=== PATIENT | female | born 1970 | race Caucasian/White ===

== ENCOUNTER 2017-10-11 09:08 | Emergency (ER) | payer BC, OTHER ==
[~2017-10-11] VITALS: Ht 167.6 cm; Wt 87.8 kg
[~2017-10-11 09:08] MED LIST: BUPR200T2 PO; CLON0.5T3 PO; ESCI10TA17 PO; FLUT0.15 NAE; MECL1TAB40 PO; MULT-612 PO; ONDA4TAB4 PO; PHEN37.585 PO; ZOLP6.252 PO
[2017-10-11 09:13] VITALS: TEMP 36.7; Ht 167.6 cm; Wt 87.8 kg
[2017-10-11] MEDS ORDERED: ZFR4 PO (09:41)
[2017-10-11] MEDS ORDERED: KETOROLAC TROMETHAMINE 60 MG/2 ML VIAL IM STA (09:58)
[2017-10-11] MEDS ORDERED: DIAZEPAM 5MG TAB PO STA (09:58)
--- NOTE | 2017-10-11 11:22 | DIAGNOSTIC IMAGING REPORT ---
L-SPINE MIN 4 VIEWS ROUTINE, THORACIC SPINE 3 VIEWS ROUTINE HISTORY: 47 years-old Female midline low back pain, poss T12 compression fracture acute mid and low back pain with recent fall COMPARISON: CT 10/21/2015 TECHNIQUE: 5 views of the lumbar spine and 3 views of the thoracic spine FINDINGS: THORACIC: There are 12 rib-bearing thoracic-type vertebral segments present. There is no acute fracture, subluxation or significant degenerative changes identified. There is minimal endplate spurring. Fusion hardware of the cervical spine. Atherosclerosis of the aorta. LUMBAR: 5 nonrib-bearing lumbar type vertebral segments. No spondylolysis or spondylolisthesis. Mild facet arthrosis at L5-S1. No compression deformity, acute fracture or subluxation. Surgical clips project over the mid pelvis. IMPRESSION: No acute fracture or subluxation. The above report was generated using voice recognition software. It may contain grammatical, syntax or spelling errors. Electronically signed by: Tiburcio Beasley M.D. 10/11/2017 11:20 AM Dictated Date/Time: 10/11/2017 11:17 AM
--- NOTE | 2017-10-11 11:45 | EMERGENCY ROOM VISIT NOTE ---
ED Visit Note First contact with patient: 09:21 CHIEF COMPLAINT: Low back pain HISTORY OF PRESENT ILLNESS: This is a 47-year-old female who presents to the emergency department complaining of pain in the low back which began approximately a week ago after she fell down some steps. She states that she slipped and landed right on her lower back, and has had bad lower back pain ever since. She states that the pain is constant, radiates into her left buttock and occasionally shoots down the left leg, worse with ending twisting and sitting up from lying down, better with rest and medications, currently rates as 8/10. Patient states that she saw her primary care doctor and also saw an orthopedic doctor, had x-rays done and was placed on ibuprofen, Flexeril , Ultram, which she states has been helping her pain. However, she is concerned that pain medication is "masking" her back pain and she wants something that will fix the pain immediately. The patient denies any loss of control of their bowel or bladder functions. There has been no leg numbness or weakness, and no change in sensation. No saddle paresthesia. No nausea or vomiting or abdominal pain. No chest pain or shortness of breath. The patient has not had prior back injuries. No dysuria or increased urinary frequency. No abrasions, or rash. No headaches, neck pain or stiffness, vision changes, dizziness or syncope. REVIEW OF SYSTEMS: A complete 10 point review of systems was reviewed with the patient with pertinent positives and negatives as per history of present illness. All else were negative. ALLERGIES: Reviewed in chart. MEDICATIONS: Reviewed in chart. PMH: Reviewed in chart. SOCIAL HISTORY: Lives at home. Denies tobacco, alcohol, recreational drug use. PHYSICAL EXAM: VITALS: Vitals are noted on the nurse's note and reviewed by myself. Vital signs stable. GENERAL: Pleasant and cooperative, in no acute distress, non-diaphoretic, well- developed well-nourished. SKIN: The skin is without rashes, erythema, edema, or bruising. Capillary refill less than 2 seconds. NECK: Supple without nuchal rigidity. No cervical spine tenderness. No paraspinous muscle tenderness. HEART: Regular rate and rhythm without murmurs gallops or rubs. LUNGS: Clear to auscultation bilaterally without wheezes, rales or rhonchi. ABDOMEN: Positive bowel sounds x 4. Normal tympanic percussion. Soft, nontender, without masses or organomegaly. Green sign negative. MUSCULOSKELETAL: No muscle atrophy, erythema, or edema noted of the back. There is moderate tenderness over the lumbar spinous processes. There is also tenderness over the paraspinous muscles on the left. There is no tenderness over the thoracic spine or paraspinous muscles. There are mild muscle spasms present. The patient is slow to move around with maximum tenderness with bending at the waist. Negative straight leg raise test bilaterally. NEURO: Patient was alert and oriented to person place and time. Normal sensation to light and sharp touch. Deep tendon reflexes 2+ in the lower extremities. Dorsalis pedis pulse 2+ bilaterally. Strength 5/5 and equal in the bilateral lower extremities. IMAGING: L-SPINE MIN 4 VIEWS ROUTINE, THORACIC SPINE 3 VIEWS ROUTINE HISTORY: 47 years-old Female midline low back pain, poss T12 compression fracture acute mid and low back pain with recent fall COMPARISON: CT 10/21/2015 TECHNIQUE: 5 views of the lumbar spine and 3 views of the thoracic spine FINDINGS: THORACIC: There are 12 rib-bearing thoracic-type vertebral segments present. There is no acute fracture, subluxation or significant degenerative changes identified. There is minimal endplate spurring. Fusion hardware of the cervical spine. Atherosclerosis of the aorta. LUMBAR: 5 nonrib-bearing lumbar type vertebral segments. No spondylolysis or spondylolisthesis. Mild facet arthrosis at L5-S1. No compression deformity, acute fracture or subluxation. Surgical clips project over the mid pelvis. IMPRESSION: No acute fracture or subluxation. EMERGENCY DEPARTMENT COURSE: I examined the patient. Differential diagnosis includes lumbar sprain/strain, contusion, radiculopathy, sciatica, vertebral fracture, subluxation, among others. Patient was treated with IM Toradol and PO Valium. Patient did show me a message from her PCP requesting that she have thoracic spine imaging done to further evaluate for possible T12 vertebral compression fracture. Given her worsening low back pain, will perform thoracic and lumbar spine x-rays at this time. These were reviewed and showed no acute fracture or subluxation. Patient reports improved pain after receiving Toradol and Valium. She was also given a dose of tramadol, which she states has been helping her pain. She was encouraged to follow closely with her primary care provider and to seek referral for physical therapy to help continue improving her back pain. She was also given strict return precautions should her symptoms worsen, she verbalized understanding. Patient was discharged home in stable condition and ambulatory. Problem List Medical Problems: (1) Anxiety Status: Chronic (2) Depression Status: Chronic Current/Historical Medications Scheduled Bupropion Hcl (Wellbutrin Sr), 200 MG PO BID Escitalopram (Lexapro), 10 MG PO HS Multiple Vitamins W/ Minerals (Centrum Ultra Womens), 1 TAB PO LUNCHTIME Scheduled PRN Clonazepam (Klonopin), 0.5 MG PO TID PRN for Anxiety Meclizine Hcl (Meclizine Hcl), 12.5-25 MG PO TID PRN for Dizziness or Vertigo Ondansetron (Ondansetron HCl), 4 MG PO Q6 PRN for Nausea Allergies Coded Allergies: Hydrocodone (Verified Allergy, Mild, HIVES, 10/11/17) PATIENT TOLERATES PERCOCET Nalbuphine (Verified Allergy, Mild, HIVES, 10/11/17) Hydromorphone (Verified Adverse Reaction, Intermediate, vomited for 2 days , 10/11/17) Morphine (Verified Adverse Reaction, Mild, n/v, 10/11/17) Vital Signs Date Time Temp Pulse Resp B/P (MAP) Pulse Ox O2 Delivery O2 Flow Rate FiO2 10/11/17 12:41 77 16 126/83 98 10/11/17 11:43 70 14 124/74 98 Room Air 10/11/17 09:13 36.7 95 18 148/85 96 Room Air Medications Administered Medications (Trade) Dose Ordered Sig/Ness Route Start Time Stop Time Status Last Admin Dose Admin Ketorolac Tromethamine (Toradol Inj) 60 mg NOW STAT IM 10/11/17 09:58 10/11/17 10:00 DC 10/11/17 10:17 60 MG Diazepam (Valium Tab) 10 mg NOW STAT PO 10/11/17 09:58 10/11/17 10:00 DC 10/11/17 10:17 10 MG Tramadol HCl (Ultram Tab) 100 mg NOW STAT PO 10/11/17 11:53 10/11/17 11:54 DC 10/11/17 12:04 100 MG Departure Information Impression Primary Impression: Injury of low back Dispostion Home / Self-Care Condition GOOD Referrals Mandi Wright D.O. (PCP) Patient Instructions ED Back Care Tips, ED Exercises Lumbar Muscles, ED Low Back Pain Injury, My [facility] Additional Instructions Take it easy for the next few days, no strenuous activity, heavy lifting, or bending/twisting motions, to allow your back to rest. Alternate heat and ice for comfort. After heat, you may do gentle stretching and massage to the low back. Continue your prescribed medications from your PCP to manage your back pain and spasms. Follow up with your PCP in the next few days for further management. You may benefit from physical therapy. Please return to the ER if any problems with bowel or bladder function, numbness in your groin, high fevers, severe abdominal pain or worsening back pain, or if loss of feeling/movement of legs. Work Instructions Return To Work: 2 days Problem Qualifiers Primary Impression: Injury of low back Encounter type: subsequent encounter Qualified Codes: S39.92XD - Unspecified injury of lower back, subsequent encounter
[2017-10-11] MEDS ORDERED: TRAMADOL HCL 50 MG TAB PO STA (11:53)
[2017-10-11 12:41] VITALS: BP 126/83; PULSE 77; O2SAT 98
== END 2017-10-11 12:42 | disposition home or self-care (01) ==
LOC: C.EDB 09:08
DX: S39.92XA Unspecified injury of lower back, initial encounter (principal); W10.9XXA Fall (on) (from) unspecified stairs and steps, initial encounter; F32.9 Major depressive disorder, single episode, unspecified; F41.9 Anxiety disorder, unspecified; Z88.5 Allergy status to narcotic agent

== ENCOUNTER 2021-07-05 12:31 | Inpatient (IN) ==
[2021-07-05] MEDS ORDERED: ONDANSETRON INJ 2 MG/ML 2 ML VIAL IV STA (13:33)
[2021-07-05] MEDS ORDERED: KETOROLAC TROMETHAMINE 15 MG/ML VIAL IV ONE ×2 (13:33→14:38)
[2021-07-05] MEDS ORDERED: SODIUM CHLORIDE 0.9% 1000ML 1,000 ML IV SCH (13:34)
[2021-07-05 13:41] LABS: Basophils # (auto) 0.03 K/uL (0-0.2); Basophils % (auto) 0.3 %; Eosinophils # (auto) 0.05 K/uL (0-0.5); Eosinophils % (auto) 0.5 %; Hematocrit (blood only) 37.3 % (37-47); Hemoglobin 12.6 g/dL (12.0-16.0); Immature Granulocytes # (auto) 0.03 K/uL (0.00-0.02); Immature Granulocytes % (auto) 0.3 %; Lymphocytes # (auto) 1.48 K/uL (1.2-3.4); Lymphocytes % (auto) 13.6 %; Mean Corpuscular Hemoglobin 30.9 pg (25-34); Mean Corpuscular Hgb Conc 33.8 g/dL (32-36); Mean Corpuscular Volume 91.4 fL (80-100); Mean Platelet Volume 10.4 fL (7.4-10.4); Monocytes # (auto) 0.71 K/uL (0.11-0.59); Monocytes % (auto) 6.5 %; Neutrophils # (auto) 8.58 K/uL (1.4-6.5); Neutrophils % (auto) 78.8 %; Platelet Count 311 K/uL (130-400); RDW Coefficient of Variation 12.6 % (11.5-14.5); RDW Standard Deviation 42.6 fL (36.4-46.3); Red Blood Count 4.08 M/uL (4.2-5.4); White Blood Count 10.88 K/uL (4.8-10.8)
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
[2021-07-05 13:59] LABS: Alanine Aminotransferase 34 (12-78); Albumin Level 3.8 gm/dl (3.4-5.0); Aspartate Aminotransferase 11 U/L (15-37); BUN Creatinine Ratio 30.6 (10-20); Blood Urea Nitrogen 19 mg/dl (7-18); Calcium 9.4 mg/dl (8.5-10.1); Carbon Dioxide 25 mmol/L (21-32); Chloride 109 mmol/L (98-107); Est GFR (African American) 119.3 ml/min; Est GFR (Non-African American) 102.9 ml/min; Glucose 143 mg/dl (70-99); Lipase 82 U/L (73-393); Potassium 3.9 mmol/L (3.5-5.1); Sodium 140 mmol/L (136-145)
[2021-07-05 14:01] LABS: Alkaline Phosphatase 79 U/L (45-117); Bilirubin,Total 0.3 mg/dl (0.2-1); Globulin 3.8 gm/dl (2.5-4.0); Total Protein 7.6 gm/dl (6.4-8.2)
[2021-07-05 14:10] LABS: Partial Thromboplastin Time 26.2 Seconds (21.0-31.0); Prothrombin Time 10.5 Seconds (9.0-12.0)
[2021-07-05 14:24] LABS: Pregnancy Test, Serum Negative (Negative)
[2021-07-05] MEDS ORDERED: OPTIRAY 320 100ml IV ONE (14:26)
--- NOTE | 2021-07-05 14:54 | CT Scan Report ---
ABDOMEN AND PELVIS CT WITH IV CONTRAST CT DOSE: 523.91 mGy.cm HISTORY: severe L flank pain, hematuria, vag bleeding TECHNIQUE: Multiaxial CT images of the abdomen and pelvis were performed following the use of intrave nous contrast. A dose lowering technique was utilized adhering to the principles of ALARA. COMPARISON STUDY: Abdomen and pelvis CT 10/21/2015. FINDINGS: The lung bases are clear. No pneumoperitoneum. No pneumatosis. L5-S1 posterior decompressio n and fusion with pedicle screws and rods. No fractures within the visualized osseous structures. Sta ble 1 cm heterogeneous enhancing lesion within the right hepatic lobe on image 113. This favors a hem angioma given the long-term stability. Small nodular thickening within the gallbladder fundus remains unchanged. This is consistent with adenomyomatosis. No gallstones. The pancreas, spleen, and adrenal glands are unremarkable. Mild focal scarring within the right kidney. A 6 mm hypodense lesion within the lower pole of the right kidney and a 7 mm hypodense lesion within the lower pole of the left kid jose manuel. These are technically too small to characterize but remain stable and therefore favors cysts. No right-sided hydronephrosis. There is a 6.8 cm blood clot within the bladder lumen. No bladder wall t hickening. The uterus is surgically absent. A few colonic diverticula. No evidence for acute divertic ulitis. No bowel wall thickening or obstruction. Normal appendix. No retroperitoneal lymphadenopathy. Mildly ectatic abdominal aorta measuring up to 2.6 cm in diameter. The renal arteries appear patent. The IVC is also patent. No pelvic free fluid. There is a small amount of the medial left perinephric hemorrhage. There is also hemorrhage within a distended calyx within the interpolar region of the le ft kidney posteriorly best seen on image 170. There is small amount of hemorrhage within the left margareth al pelvis which is nondilated. No ureteral stones. No hydronephrosis. No CT evidence for a renal aneu rysm or arteriovenous malformation. However, this could be obscured by the perinephric hemorrhage. Th ere is also a small amount of perinephric hemorrhage surrounding the ureteropelvic junction and proxi mal left ureter. No definite renal lesions. However, this could also be obscured by the hemorrhage. IMPRESSION: 1. There is a small amount of the medial left perinephric hemorrhage. There is also hemorrhage within a distended calyx within the interpolar region of the left kidney posteriorly and a small amount of hemorrhage within the left renal pelvis which is nondilated. No CT evidence for a renal mass, renal a neurysm or arteriovenous malformation. However, this could be obscured by the perinephric hemorrhage. There is also a small amount of perinephric hemorrhage surrounding the ureteropelvic junction and pr oximal left ureter. This could represent spontaneous hemorrhage if the patient is anticoagulated. [facility] and close clinical follow-up recommended to exclude the possibility of an underlying left renal mass or vascular abnormality. 2. A 6.8 cm blood clot within the bladder lumen. No bladder wall thickening. 3. Additional findings as described above. ACT 112: Negative or not required by law. Electronically signed by: Magno Gupta M.D. 07/05/2021 2:52 PM
[2021-07-05] MEDS ORDERED: ACETAMINOPHEN 325 MG TAB PO PRN (16:03)
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
[2021-07-05] MEDS: ACETAMINOPHEN 500 MG TAB PO SCH ×2 (17:17→23:32)
[2021-07-05] MEDS ORDERED: GLUCOSE 10 TABS/TUBE PO PRN (19:36)
[2021-07-05] MEDS ORDERED: GLUCAGON FOR INJ 1 MG VIAL SQ PRN (19:36)
[2021-07-05] MEDS ORDERED: CARBOHYDRATES FOR HYPOGLYCEMIA PO PRN (19:36)
[2021-07-05] MEDS ORDERED: DEXTROSE 50% 50 ML SYRINGE IV PRN (19:36)
[2021-07-05] MEDS ORDERED: GLUCOSE 40% GEL 15 GM TUBE PO PRN (19:36)
[2021-07-05 20:53] LABS: Hematocrit (blood only) 31.9 % (37-47); Hemoglobin 10.5 g/dL (12.0-16.0)
[2021-07-05] MEDS ORDERED: INSULIN ASPART 100 UNITS/ML 3 ML PEN SC SCH (21:00)
[2021-07-05] MEDS: buPROPion SR 100 MG TABCR PO SCH (21:27)
[2021-07-05] MEDS: METOPROLOL SUCC 25MG EXT REL TAB PO SCH (21:27)
[2021-07-05] MEDS: traMADol HCL 50 MG TABLET PO PRN (21:34)
[2021-07-05] MEDS: INSULIN ASPART 100 UNITS/ML VIAL SC SCH (21:35)
[2021-07-05] MEDS: PHENAZOPYRIDINE HCL 100 MG TAB PO SCH (23:32)
[2021-07-06 07:14] LABS: Hematocrit (blood only) 32.2 % (37-47); Hemoglobin 10.8 g/dL (12.0-16.0); Mean Corpuscular Hemoglobin 30.9 pg (25-34); Mean Corpuscular Hgb Conc 33.5 g/dL (32-36); Mean Corpuscular Volume 92.3 fL (80-100); Mean Platelet Volume 9.8 fL (7.4-10.4); Platelet Count 247 K/uL (130-400); RDW Coefficient of Variation 13.1 % (11.5-14.5); RDW Standard Deviation 44.1 fL (36.4-46.3); Red Blood Count 3.49 M/uL (4.2-5.4); White Blood Count 7.83 K/uL (4.8-10.8)
[2021-07-06 07:51] LABS: BUN Creatinine Ratio 18.9 (10-20); Calcium 9.1 mg/dl (8.5-10.1); Creatinine Clr Calc Pharmacy 97.6 ml/min; Est GFR (African American) 107.2 ml/min; Est GFR (Non-African American) 92.5 ml/min; Potassium 3.5 mmol/L (3.5-5.1)
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
[2021-07-06] MEDS: INSULIN ASPART 100 UNITS/ML VIAL SC SCH (09:14)
[2021-07-06] MEDS: buPROPion SR 100 MG TABCR PO SCH ×2 (09:17→20:35)
[2021-07-06] MEDS: VENLAFAXINE HCL XR 37.5 MG CAPXR PO SCH (09:17)
[2021-07-06] MEDS: PANTOprazole 40 MG TAB PO SCH (09:17)
[2021-07-06] MEDS: PHENAZOPYRIDINE HCL 100 MG TAB PO SCH ×3 (09:17→20:35)
[2021-07-06] MEDS: ACETAMINOPHEN 500 MG TAB PO SCH ×2 (09:22→16:31)
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
[2021-07-06] MEDS: traMADol HCL 50 MG TABLET PO PRN ×2 (11:54→20:56)
[2021-07-06] MEDS ORDERED: LORazepam 0.5 MG TAB PO ONE (14:24)
[2021-07-06] MEDS ORDERED: ONDANSETRON INJ 2 MG/ML 2 ML VIAL IV STA (18:06)
[2021-07-06] MEDS ORDERED: HYDROmorphone INJ 1 MG/ML SYRINGE IV STA (18:06)
[2021-07-06] MEDS ORDERED: BELLADONNA/OPIUM SUPP 60 MG SUPP PR PRN (18:07)
[2021-07-06] MEDS: ONDANSETRON INJ 2 MG/ML 2 ML VIAL IV PRN (19:27)
[2021-07-06 19:47] LABS: Hematocrit (blood only) 31.4 % (37-47); Hemoglobin 10.3 g/dL (12.0-16.0)
[2021-07-06] MEDS: METOPROLOL SUCC 25MG EXT REL TAB PO SCH (20:35)
[2021-07-06] MEDS: oxyCODONE HCL IR 5 MG TAB (IMMEDIATE RELEASE) PO PRN (21:34)
[2021-07-06] MEDS: PROMETHAZINE HCL 12.5 MG in SODIUM CHLORIDE 0.9% 50 ML IV PRN (21:35)
[2021-07-06] MEDS ORDERED: KETOROLAC TROMETHAMINE 15 MG/ML VIAL IV ONE (23:01)
[2021-07-07] MEDS: ACETAMINOPHEN 500 MG TAB PO SCH ×3 (00:06→17:39)
[2021-07-07] MEDS: ONDANSETRON INJ 2 MG/ML 2 ML VIAL IV PRN ×3 (03:15→19:49)
[2021-07-07] MEDS: oxyCODONE HCL IR 5 MG TAB (IMMEDIATE RELEASE) PO PRN ×4 (03:15→19:48)
[2021-07-07] MEDS: PROMETHAZINE HCL 12.5 MG in SODIUM CHLORIDE 0.9% 50 ML IV PRN (08:05)
[2021-07-07 08:21] LABS: Basophils # (auto) 0.02 K/uL (0-0.2); Basophils % (auto) 0.2 %; Eosinophils # (auto) 0.08 K/uL (0-0.5); Eosinophils % (auto) 0.7 %; Hematocrit (blood only) 30.6 % (37-47); Hemoglobin 10.2 g/dL (12.0-16.0); Immature Granulocytes # (auto) 0.02 K/uL (0.00-0.02); Immature Granulocytes % (auto) 0.2 %; Lymphocytes # (auto) 2.14 K/uL (1.2-3.4); Lymphocytes % (auto) 18.4 %; Mean Corpuscular Hgb Conc 33.3 g/dL (32-36); Mean Platelet Volume 10.2 fL (7.4-10.4); Monocytes # (auto) 1.12 K/uL (0.11-0.59); Monocytes % (auto) 9.6 %; Neutrophils # (auto) 8.28 K/uL (1.4-6.5); Neutrophils % (auto) 70.9 %; Platelet Count 243 K/uL (130-400); RDW Coefficient of Variation 12.9 % (11.5-14.5); RDW Standard Deviation 43.9 fL (36.4-46.3); Red Blood Count 3.29 M/uL (4.2-5.4); White Blood Count 11.66 K/uL (4.8-10.8)
--- NOTE | 2021-07-07 08:41 | CT Scan Report ---
ABDOMEN AND PELVIS CT WITHOUT CONTRAST CT DOSE: 601.16 mGy.cm HISTORY: Acute generalized abdominal pain worsening abd pain TECHNIQUE: Multiaxial CT images of the abdomen and pelvis were performed without contrast. A dose lo wering technique was utilized adhering to the principles of ALARA. COMPARISON STUDY: CT abdomen and pelvis 07/05/2021, 10/21/2015. FINDINGS: Trace pericardial effusion. Clear lung bases. There is no pneumatosis or pneumoperitoneum. The unenha nced spleen, mildly atrophic pancreas and adrenal glands are unremarkable. Probable fundal adenomyoma tosis of the gallbladder. Unremarkable liver. The right kidney is within normal limits. Moderate perinephric edema with hemorrhage within the perin ephric space redemonstrated. Hemorrhagic debris is also noted within the left renal collecting system , most pronounced within the calyces of the superior pole and interpolar distribution. There is a 3 m m nonobstructing calculus of the inferior pole left kidney. 3.5 cm blood clot within the renal pelvis and ureteropelvic junction has increased in size from prior. Moderate associated hydroureteronephros is with blood products also noted within the left ureter. Ill-defined hemorrhagic material noted with in the superior pole left kidney parenchyma on image 124. 5 cm blood clot within the decompressed uri nary bladder lumen with Kaur catheter. Hysterectomy. Atherosclerosis of the aorta with ectasia redem onstrated level of the kidneys measuring up to 2.6 cm. No adenopathy. No bowel obstruction or bowel wall thickening. Normal appendix. Unremarkable soft tissues. No acute f racture. Prior discectomy with posterior interbody andrew and screw fusion at L5-S1. IMPRESSION: 1. Unchanged perinephric hemorrhage with hemorrhage again noted within the left renal collecting syst em and left ureter. 3.5 cm blood clot within the renal pelvis and ureteropelvic junction has increase d in size from comparison resulting in moderate hydroureteronephrosis. Additionally, there is faint h emorrhage noted within the superior pole of the left kidney. No discrete mass was identified within t his distribution on the prior contrast-enhanced study. Again, the etiology of this hemorrhage is uncl ear and may be secondary to spontaneous hemorrhage, vascular anomaly or occult mass. 2. 5 cm blood clot within the urinary bladder lumen. 3. No bowel obstruction or bowel wall thickening. 4. Additional findings as above. ACT 112: Negative or not required by law. The above report was generated using voice recognition software. It may contain grammatical, syntax o r spelling errors. Electronically signed by: Tom Beasley M.D. 07/07/2021 8:40 AM
[2021-07-07] MEDS: buPROPion SR 100 MG TABCR PO SCH ×2 (08:47→21:35)
[2021-07-07] MEDS: VENLAFAXINE HCL XR 37.5 MG CAPXR PO SCH (08:47)
[2021-07-07 08:49] LABS: BUN Creatinine Ratio 15.2 (10-20); Calcium 8.8 mg/dl (8.5-10.1); Creatinine Clr Calc Pharmacy 65.7 ml/min; Est GFR (African American) 66.4 ml/min; Est GFR (Non-African American) 57.3 ml/min; Potassium 3.6 mmol/L (3.5-5.1)
[2021-07-07] MEDS: PHENAZOPYRIDINE HCL 100 MG TAB PO SCH ×3 (08:49→21:36)
[2021-07-07] MEDS: PANTOprazole 40 MG TAB PO SCH (08:49)
[2021-07-07] MEDS ORDERED: DOCUSATE SODIUM/SENNA 50/8.6MG TAB PO SCH (09:00)
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
[2021-07-07] MEDS ORDERED: LACTATED RINGER'S 1,000 ML IV SCH (11:45)
--- NOTE | 2021-07-07 11:49 | Urology Progress Note ---
Date of Service July 07, 2021 Assessment & Plan (1) Renal hemorrhage, left: (2) Gross hematuria: Plan: 51yo F admitted with left kidney hemorrhage of unclear etiology and gross hematuria - Plan of care reviewed with Dr. Garcia, on-call urologist - Afebrile, VSS - Labs reviewed, Wbc up to 11.66 today, Hgb 10.2, creatinine 1.10 - Repeat CTAP -Unchanged perinephric hemorrhage with hemorrhage again noted within the left renal collecting system and left ureter; 3.5 cm blood clot within the renal pelvis and ureteropelvic junction has increased in size from comparison resulting in moderate hydroureteronephrosis; 5 cm blood clot within the urinary bladder lumen. - Given her persistent gross hematuria and intractable left flank pain, will proceed to OR today for cystoscopy, clot evacuation, possible fulguration depending on findings. - Risks and benefits to be reviewed with patient by Dr. Garcia. Covid test negative. Will cover with antibiotics preoperatively. - Keep NPO. - Continue supportive care, pain control, and close monitoring - Will continue to follow Admission and Anticipated Discharge Date Admission Date: July 06, 2021 Subjective Pt examined at bedside this AM. Awake, resting in bed on arrival. Appears uncomfortable. Reports intermittent severe left flank pain. Some nausea and vomiting. No fever or chills. Kaur intact and draining with hematuria, no clots noted. Review of Systems Constitutional: as per Subjective / HPI Gastrointestinal: as per Subjective / HPI Genitourinary: as per Subjective / HPI Physical Exam Constitutional: + uncomfortable Respiratory: normal respiratory effort and able to speak in complete sentences; no labored breathing and no audible wheezes Gastrointestinal (Abdomen): Inspection/Auscultation: abdomen normal to inspection; abdomen not distended Percussion/Palpation: + abdomen tender (Left abdominal/flank tenderness with palpation) and abdomen soft; no guarding and abdomen not rigid Musculoskeletal: Head/Neck/Chest: normocephalic Skin: No visible rashes or lesions to exposed skin areas Neurologic: moves all extremities and awake Psychiatric: Orientation: alert, oriented x 3 and cooperative Genitourinary: + CVA tenderness (Left) Kaur intact and draining with hematuria Results & Data ([facility]) Vital Signs (Past 12 Hours) Vital Signs Temp Pulse Resp BP Pulse Ox 07/07/21 07:54 36.6 C 71 16 113/71 99 PG Care Time/CCT Total # of Minutes Spent Total Time Spent with Patient: Total time spent is greater than 50% in coordination of care (as documented) at patient's floor/unit and/or counseling patient: Coding Level of Care Code 32703 Subseq Hosp Care Lvl 2 Diagnoses Renal hemorrhage, left N28.89 Gross hematuria R31.0
[2021-07-07] MEDS: LACTATED RINGER'S 1,000 ML IV SCH ×2 (11:51→21:36)
--- NOTE | 2021-07-07 13:41 | Anesthesiology Consultation ---
Date of Service July 07, 2021 Assessment & Plan (1) Encounter for pre-operative examination: History Surgery Operation Date: 07/07/21 13:00 Proposed Procedures p Cystoscopy Clot Evacuation, Possible Fulguration - Will Garcai MD Height/Weight Height: 5 ft 6 in Weight: 86.9 kg Allergies Allergy/AdvReac Type Severity Reaction Status Date / Time hydrocodone Allergy Mild HIVES Verified 07/05/21 14:33 nalbuphine Allergy Mild HIVES Verified 07/05/21 14:33 hydromorphone AdvReac Intermediate vomited Verified 07/05/21 14:33 for 2 days morphine AdvReac Mild n/v Verified 07/05/21 14:33 Medications Home Medications Medication Instructions Recorded Confirmed Last Taken bupropion HCl 200 mg tablet,12 hr 200 mg PO BID #0 tab 07/02/13 07/05/21 07/05/21 sustained-release clonazepam 0.5 mg disintegrating 0.5 mg PO TID PRN #0 tab 10/21/15 07/05/21 07/13/20 tablet fluticasone propionate 50 2 spray INTRANASAL DAILY PRN 07/14/20 07/05/21 07/05/21 mcg/actuation nasal spray,suspension metoprolol succinate 25 mg 25 mg PO HS 07/14/20 07/05/21 07/03/21 tablet,extended release 24 hr omeprazole 20 mg capsule,delayed 20 mg PO QAM 07/14/20 07/05/21 07/05/21 release venlafaxine 37.5 mg 37.5 mg PO QAM 07/14/20 07/05/21 07/05/21 capsule,extended release 24 hr metformin 500 mg tablet,extended 500 mg PO DAILY@1600 07/05/21 07/05/21 07/04/21 release 24 hr naproxen sodium 220 mg tablet 220 mg PO Q12H PRN 07/05/21 07/05/21 07/03/21 (Aleve) 1 tab Active Medications Generic Name Dose Route Start Last Admin Trade Name Freq PRN Reason Stop Dose Admin Acetaminophen 1,000 mg 07/05/21 17:00 07/07/21 08:49 Acetaminophen 500 Mg Tab PO 08/04/21 16:59 Not Given Q8H COLE Belladonna Alkaloids/Opium 60 mg 07/06/21 18:07 07/06/21 19:25 Belladonna/Opium Supp 60 Mg Supp [place] 07/20/21 18:06 60 mg Q12H PRN Administration severe flank/bladder pain Bupropion HCl 200 mg 07/05/21 21:00 07/07/21 08:47 Bupropion Sr 100 Mg Tabcr PO 08/04/21 20:59 200 mg BID COLE Administration Promethazine HCl 12.5 mg/ 50.5 mls @ 202 mls/hr 07/06/21 21:00 07/07/21 08:20 Sodium Chloride IV 08/05/21 20:59 Infused Q6H PRN Infusion Nausea And Vomiting Lactated Ringer's 1,000 mls @ 80 mls/hr 07/07/21 11:45 07/07/21 11:51 Lr IV 08/06/21 11:44 80 mls/hr .[id number] COLE Administration Metoprolol Succinate 25 mg 07/05/21 21:00 07/06/21 20:35 Metoprolol Succ 25mg Ext Rel Tab PO 08/04/21 20:59 25 mg HS COLE Administration Ondansetron HCl 4 mg 07/05/21 16:03 07/07/21 11:37 Ondansetron Inj 2 Mg/Ml 2 Ml Vial IV 08/04/21 16:02 4 mg Q6H PRN Administration Nausea Oxycodone HCl 5 - 10 mg 07/07/21 07:36 07/07/21 11:32 Oxycodone Hcl Ir 5 Mg Tab (Immediate Release) PO 07/20/21 21:01 10 mg Q4H PRN Administration Pain Protocol Pantoprazole Sodium 40 mg 07/06/21 09:00 07/07/21 08:49 Pantoprazole 40 Mg Tab PO 08/05/21 08:59 Not Given QAM COLE Phenazopyridine HCl 100 mg 07/05/21 22:45 07/07/21 08:49 Phenazopyridine Hcl 100 Mg Tab PO 08/04/21 22:44 Not Given TID COLE Venlafaxine HCl 37.5 mg 07/06/21 09:00 07/07/21 08:47 Venlafaxine Hcl Xr 37.5 Mg Capxr PO 08/05/21 08:59 37.5 mg QAM COLE Administration Past Medical History Medical History Anxiety Depression GERD (gastroesophageal reflux disease) HTN (hypertension) Pre-diabetes PSVT (paroxysmal supraventricular tachycardia) Seasonal allergies Past Family History Family History Other Diabetes Kidney stones Past Surgical History Surgical History History of fusion of cervical spine History of hysterectomy with oophorectomy History of lumbar surgery History of tubal ligation Status post trigger finger release Social History Smoking Status: Never smoker Do You Dip or Chew Tobacco: No Hx Alcohol Use: Yes alcohol intake frequency: a few times a week Hx Substance Use: No substance use type: does not use Physical Exam Vital Signs Last Vital Signs Temp 36.6 C 07/07/21 07:54 Pulse 71 07/07/21 07:54 Resp 16 07/07/21 07:54 BP 113/71 07/07/21 07:54 Pulse Ox 99 07/07/21 07:54 Testing Laboratory Results 07/07/21 07:52 07/07/21 07:52 PT 10.5 Seconds (9.0-12.0) 07/05/21 13:52 INR 1.0 (0.9-1.1) 07/05/21 13:52 APTT 26.2 Seconds (21.0-31.0) 07/05/21 13:52 07/07/21 07/07/21 11:50 08:11 POC Glucose 113 H 122 H Electrocardiogram Date: 07/14/21 Normal sinus rhythm Normal ECG When compared with ECG of 02-JUL-2013 11:12, No significant change was found Confirmed by Chetan Bush ([id number]) on 07/15/2020 5:30:41 AM Chest X-Ray Date: 07/14/21 Hazy right infrahilar density. This could be due to vascular crowding or a focal pneumonitis. 2. A 1.1 cm perihilar nodule which is new from the prior study. Follow-up nonemergent chest CT recommended to evaluate for the possibility of a pulmonary lesion.
[2021-07-07] MEDS ORDERED: SCOPOLAMINE 1 MG TDSY TD ONE ×2 (14:05→14:30)
[2021-07-07] MEDS ORDERED: fentaNYL citrate 100 MCG/2 ML VIAL ONE (14:14)
[2021-07-07] MEDS ORDERED: MIDAZOLAM HCL 1 MG/ML 2ML VIAL ONE (14:14)
[2021-07-07] MEDS ORDERED: LIDOCAINE 2% 2 ML VIAL/AMP(20MG/ML) INFIL ONE (14:15)
[2021-07-07] MEDS ORDERED: PROPOFOL IV EMULSION 10 MG/ML 20 ML VIAL IV ONE (14:15)
[2021-07-07] MEDS ORDERED: ONDANSETRON INJ 2 MG/ML 2 ML VIAL IV PRN (14:22)
[2021-07-07] MEDS ORDERED: ePHEDrine sulfate 50 MG/ML AMP IV PRN (14:22)
[2021-07-07] MEDS ORDERED: ATROPINE SULFATE 0.1 MG/ML 10ML SYR IV PRN (14:22)
[2021-07-07] MEDS ORDERED: fentaNYL citrate 100 MCG/2 ML VIAL IV PRN (14:22)
--- NOTE | 2021-07-07 14:41 | History & Physical Bridge Note ---
Date of Service July 07, 2021 History & Physical Bridge Note I have examined the patient, reviewed the History & Physical and in the interval since the performance of the History & Physical I have noted the following changes of clinical significance: no changes noted Renal bleeding, but significant clot within the bladder. plan for cysto and clot evac.
[2021-07-07] MEDS ORDERED: CIPROFLOXACIN 400MG / 200ML D5W IV ONE (14:49)
[2021-07-07] MEDS ORDERED: ONDANSETRON INJ 2 MG/ML 2 ML VIAL ONE (15:09)
[2021-07-07] MEDS ORDERED: CIPROFLOXACIN / D5W 400 MG/200 ML BAG IV SCH (15:15)
--- NOTE | 2021-07-07 15:31 | Operative Report ---
PG Post Operative Report Pre & Post Diagnosis Operation Date: 07/07/21 13:00 Pre-Op Diagnosis: Clot Retention and Urinary Retention Post-Op Diagnosis: Clot Retention and Urinary Retention I identified the patient and participated in the time-out.: Yes Procedure Operation Date: 07/07/21 13:00 Actual Procedures p Cystoscopy Clot Evacuation(Not Applicable) - Will Garcia MD Surgeon Josef Garcia MD Electric Wirer none Estimated Blood Loss 0 Findings Consistent with Post-Op Diagnosis Specimens none Description of Procedure The patient was identified in the preoperative holding area, appropriate informed consents were reviewed and completed and the patient was transferred to the operative suite. Upon arrival, appropriate antibiotics and anesthesia were administered and the patient was placed in dorsal lithotomy position and prepped and draped in sterile fashion. To begin the case I passed a 22 Tunisian cystoscope with 30 degree lens. Inspection revealed a substantial amount of clot layering in the dependent portion of the bladder. I attempted to visualize the remainder of the bladder but the urine was so discolored that visualization was somewhat challenging. I exchanged the 22 Tunisian cystoscope for 24 Tunisian resectoscope and readvanced into the bladder with a visual obturator. I then utilized a Damir syringe attached to the resectoscope to suck the clot out of the bladder. After evacuating all clot. I was able to fully inspect utilizing a 30 and 70 degree lens. She is a very healthy appearing bladder without any lesions or concerning findings. She does have active bleeding from the left UO. This is consistent with the preoperative imaging and expectations. This bleeding is not brisk and appears to be dark/old blood. I attest to the content of the Intraoperative Record and any orders documented therein. Any exceptions are noted below.
--- NOTE | 2021-07-07 15:48 | Anesthesiology Progress Note ---
Date of Service July 07, 2021 Anesthesia Post Procedure Vital Signs Vital Signs: Temp Pulse Pulse Pulse Resp BP BP 07/07/21 15:45 96 H 18 133/77 07/07/21 15:35 96 H 18 135/76 07/07/21 15:27 97.7 F 105 H 18 163/90 H 07/07/21 14:10 100.6 F H 103 H 20 152/73 H 07/07/21 07:54 97.9 F 71 16 113/71 07/06/21 22:23 98.1 F 73 16 124/72 07/06/21 20:34 81 136/70 Pulse Ox 07/07/21 15:45 95 07/07/21 15:35 94 07/07/21 15:27 94 07/07/21 14:10 94 07/07/21 07:54 99 07/06/21 22:23 96 07/06/21 20:34 Pain Intensity Left Flank: Pain Intensity: 9 Transfer of Care Handoff Completed per policy Notes Mental Status: alert / awake / arousable and participated in evaluation Patient Amnestic to Procedure: Yes Nausea / Vomiting: adequately controlled Pain: adequately controlled Airway Patency, RR, SpO2: stable & adequate BP & HR: stable & adequate Hydration State: stable & adequate Anesthetic Complications: no major complications apparent and Pt Satisfied with anesthetic care
[2021-07-07] MEDS: CHECK SCOPOLAMINE PATCH PLACEMENT SCH ×2 (16:46→23:07)
[2021-07-07 17:13] LABS: Mean Corpuscular Hemoglobin 31.3 pg (25-34); Mean Corpuscular Hgb Conc 33.3 g/dL (32-36); Mean Corpuscular Volume 93.8 fL (80-100); Mean Platelet Volume 10.5 fL (7.4-10.4); Platelet Count 231 K/uL (130-400); RDW Coefficient of Variation 12.9 % (11.5-14.5); RDW Standard Deviation 44.3 fL (36.4-46.3); White Blood Count 25.23 K/uL (4.8-10.8)
--- NOTE | 2021-07-07 17:14 | XRay Report ---
XR chest 1V portable CLINICAL HISTORY: Fever. COMPARISON STUDY: Chest radiograph July 14, 2020. FINDINGS: Lung volumes are mildly diminished. There is no pneumothorax or pleural effusion. Linear le ft basilar opacity favors atelectasis. There is no consolidation or evidence for pulmonary edema. Car diac size is normal. Postoperative findings within the cervical spine are incidentally noted. IMPRESSION: Low lung volumes with left lower lung subsegmental atelectasis. ACT 112: Negative or not required by law. Electronically signed by: Cl Benton M.D. 07/07/2021 5:12 PM
[2021-07-07 17:30] LABS: BUN Creatinine Ratio 12.7 (10-20); Calcium 9.1 mg/dl (8.5-10.1); Creatinine Clr Calc Pharmacy 59.2 ml/min; Est GFR (African American) 58.6 ml/min; Est GFR (Non-African American) 50.5 ml/min; Potassium 3.6 mmol/L (3.5-5.1)
[2021-07-07 17:33] LABS: Albumin Globulin Ratio 0.8 (0.9-2); Bilirubin,Total 0.5 mg/dl (0.2-1); Globulin 3.5 gm/dl (2.5-4.0); Total Protein 6.5 gm/dl (6.4-8.2)
[2021-07-07 17:38] LABS: Basophils # (auto) 0.02 K/uL (0-0.2); Basophils % (auto) 0.1 %; Eosinophils # (auto) 0.01 K/uL (0-0.5); Immature Granulocytes # (auto) 0.07 K/uL (0.00-0.02); Immature Granulocytes % (auto) 0.3 %; Lymphocytes # (auto) 1.33 K/uL (1.2-3.4); Lymphocytes % (auto) 5.3 %; Monocytes # (auto) 2.38 K/uL (0.11-0.59); Monocytes % (auto) 9.4 %; Neutrophils # (auto) 21.42 K/uL (1.4-6.5); Neutrophils % (auto) 84.9 %
[2021-07-07 18:40] LABS: Appearance Urine Cloudy (Clear); Bacteria Urine Automated Negative (Negative); Bilirubin Urine Negative (Negative); Blood Urine 3+ (Negative); Color Urine Dark Yellow; Epithelial Cell Urine Auto 20-30 /lpf (0-5); Glucose Urine UA Negative (Negative); Ketones Urine Negative (Negative); Leukocyte Esterase Urine 1+ (Negative); Nitrite Urine Positive (Negative); Protein Urine Trace (Negative); Specific Gravity Urine 1.017 (1.000-1.030); Urobilinogen Urine Negative (Negative)
[2021-07-07] MEDS: DOCUSATE SODIUM/SENNA 50/8.6MG TAB PO SCH ×2 (21:33→21:34)
[2021-07-07] MEDS: METOPROLOL SUCC 25MG EXT REL TAB PO SCH (21:35)
[2021-07-07] MEDS: POLYETHYLENE (MIRALAX) 17 GM PACK PO SCH (21:36)
[2021-07-07] MEDS: HYDROmorphone INJ 0.5 MG/0.5 ML SYR IV PRN (21:55)
[2021-07-07] MEDS: cefTRIAXone SODIUM 2,000 MG in DEXTROSE 5% 50 ML IV SCH (21:55)
[2021-07-08] MEDS: ACETAMINOPHEN 500 MG TAB PO SCH ×2 (02:13→09:00)
[2021-07-08] MEDS: oxyCODONE HCL IR 5 MG TAB (IMMEDIATE RELEASE) PO PRN ×4 (02:16→22:57)
[2021-07-08] MEDS: LACTATED RINGER'S 1,000 ML IV SCH ×2 (05:43→14:06)
[2021-07-08 06:11] LABS: Hematocrit (blood only) 27.8 % (37-47); Hemoglobin 9.3 g/dL (12.0-16.0); Mean Corpuscular Hemoglobin 31.5 pg (25-34); Mean Corpuscular Hgb Conc 33.5 g/dL (32-36); Mean Corpuscular Volume 94.2 fL (80-100); Mean Platelet Volume 10.3 fL (7.4-10.4); Platelet Count 207 K/uL (130-400); RDW Coefficient of Variation 13.3 % (11.5-14.5); Red Blood Count 2.95 M/uL (4.2-5.4); White Blood Count 21.48 K/uL (4.8-10.8)
[2021-07-08 06:47] LABS: Calcium 9.2 mg/dl (8.5-10.1); Creatinine Clr Calc Pharmacy 59.2 ml/min; Est GFR (African American) 58.6 ml/min; Est GFR (Non-African American) 50.5 ml/min; Potassium 4.1 mmol/L (3.5-5.1)
[2021-07-08 07:00] LABS: Basophils # (auto) 0.03 K/uL (0-0.2); Basophils % (auto) 0.1 %; Eosinophils % (auto) 0.5 %; Immature Granulocytes # (auto) 0.07 K/uL (0.00-0.02); Immature Granulocytes % (auto) 0.3 %; Lymphocytes # (auto) 2.01 K/uL (1.2-3.4); Lymphocytes % (auto) 9.4 %; Monocytes # (auto) 2.21 K/uL (0.11-0.59); Monocytes % (auto) 10.3 %; Neutrophils # (auto) 17.06 K/uL (1.4-6.5); Neutrophils % (auto) 79.4 %
[2021-07-08] MEDS: HYDROmorphone INJ 0.5 MG/0.5 ML SYR IV PRN ×2 (08:26→17:03)
[2021-07-08] MEDS: ONDANSETRON INJ 2 MG/ML 2 ML VIAL IV PRN ×2 (08:30→17:03)
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
[2021-07-08] MEDS: CHECK SCOPOLAMINE PATCH PLACEMENT SCH ×3 (08:54→22:59)
[2021-07-08] MEDS: buPROPion SR 100 MG TABCR PO SCH ×2 (08:59→21:46)
[2021-07-08] MEDS: PANTOprazole 40 MG TAB PO SCH (08:59)
[2021-07-08] MEDS: VENLAFAXINE HCL XR 37.5 MG CAPXR PO SCH (09:00)
[2021-07-08] MEDS: PHENAZOPYRIDINE HCL 100 MG TAB PO SCH ×3 (09:00→21:46)
[2021-07-08] MEDS: POLYETHYLENE (MIRALAX) 17 GM PACK PO SCH ×2 (09:00→21:47)
[2021-07-08] MEDS ORDERED: DOCUSATE SODIUM/SENNA 50/8.6MG TAB PO SCH (09:00)
[2021-07-08] MEDS ORDERED: POLYETHYLENE (MIRALAX) 17 GM PACK PO SCH (09:00)
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
[2021-07-08 12:28] LABS: Basophils # (auto) 0.01 K/uL (0-0.2); Basophils % (auto) 0.1 %; Eosinophils # (auto) 0.06 K/uL (0-0.5); Eosinophils % (auto) 0.3 %; Hemoglobin 9.1 g/dL (12.0-16.0); Immature Granulocytes # (auto) 0.03 K/uL (0.00-0.02); Immature Granulocytes % (auto) 0.2 %; Lymphocytes # (auto) 1.26 K/uL (1.2-3.4); Mean Corpuscular Hemoglobin 30.8 pg (25-34); Mean Corpuscular Hgb Conc 32.5 g/dL (32-36); Mean Corpuscular Volume 94.9 fL (80-100); Mean Platelet Volume 10.2 fL (7.4-10.4); Monocytes # (auto) 1.64 K/uL (0.11-0.59); Monocytes % (auto) 9.1 %; Neutrophils # (auto) 15.03 K/uL (1.4-6.5); Neutrophils % (auto) 83.3 %; Platelet Count 211 K/uL (130-400); RDW Coefficient of Variation 13.3 % (11.5-14.5); RDW Standard Deviation 46.3 fL (36.4-46.3); Red Blood Count 2.95 M/uL (4.2-5.4); White Blood Count 18.03 K/uL (4.8-10.8)
[2021-07-08 12:46] LABS: BUN Creatinine Ratio 12.1 (10-20); Creatinine Clr Calc Pharmacy 61.2 ml/min; Est GFR (Non-African American) 52.6 ml/min; Potassium 3.6 mmol/L (3.5-5.1)
--- NOTE | 2021-07-08 16:16 | Electrocardiogram Report ---
Test Reason : Blood Pressure : / mmHG Vent. Rate : 078 BPM Atrial Rate : 078 BPM P-R Int : 128 ms QRS Dur : 084 ms QT Int : 384 ms P-R-T Axes : 040 033 049 degrees QTc Int : 437 ms Normal sinus rhythm Normal ECG When compared with ECG of 14-JUL-2020 12:26, No significant change was found Confirmed by Baldev Paredes ([id number]) on 07/08/2021 4:16:22 PM Referred By: REFERRED SELF Confirmed By:Baldev Paredes
[2021-07-08] MEDS: ACETAMINOPHEN 325 MG TAB PO SCH (21:47)
[2021-07-08] MEDS: cefTRIAXone SODIUM 2,000 MG in DEXTROSE 5% 50 ML IV SCH (21:47)
[2021-07-08] MEDS: METOPROLOL SUCC 25MG EXT REL TAB PO SCH (21:50)
[2021-07-08] MEDS: DOCUSATE SODIUM/SENNA 50/8.6MG TAB PO SCH (21:57)
[2021-07-09] MEDS: oxyCODONE HCL IR 5 MG TAB (IMMEDIATE RELEASE) PO PRN ×3 (02:58→18:15)
[2021-07-09] MEDS ORDERED: HYDROmorphone INJ 0.5 MG/0.5 ML SYR IV STA (03:54)
[2021-07-09] MEDS: ACETAMINOPHEN 325 MG TAB PO SCH ×3 (06:13→21:12)
--- NOTE | 2021-07-09 07:52 | Urology Progress Note ---
Date of Service July 09, 2021 Assessment & Plan (1) Renal hemorrhage, left: (2) Gross hematuria: Plan: 51yo F admitted with left kidney hemorrhage of unclear etiology and gross hematuria - Plan of care reviewed with Dr. Manuel, on-call urologist - POD #2 s/p cystoscopy, clot evacuation - Afebrile, VSS - Tmax 38.0 yesterday @2300 - Labs reviewed - Wbc downtrending, Hgb 8.7 (previously 9.1), Creatinine stable - Urine culture preliminary no growth; Blood cultures preliminary no growth x 24hours - Continues on IV Ceftriaxone - Repeat CTAP from today reviewed - No significant change in the left perinephric hemorrhage with hemorrhage again noted in the left renal collecting system and left ureter; Moderate left hydronephrosis appears similar to prior study. - Given she is hemodynamically stable, no acute intervention indicated at this time - Recommend continue with conservative management including analgesics, antiemetics, and close monitoring of vital signs - Monitor H&H, transfuse as felt necessary per primary team - Maintain german catheter - OK to gently hand irrigate as needed for clots, retention, suprapubic pain - Continue supportive care and antibiotic therapy, follow cultures - If she would become hemodynamically unstable or have any acute changes in clinical status will need to consider transfer to tertiary center for embolization. - Will continue to follow closely with primary team Admission and Anticipated Discharge Date Admission Date: July 06, 2021 Supervising Physician Co-Signing Physician Notes I have discussed Ms. Reeves' case with Anya Higginbotham, EMILI, and agree with the above documentation. The underlying cause of her bleed is still unknown and will require further evaluation as an outpatient. She is currently hemodynamically stable. Her hemoglobin is slowly drifting down, but there is no evidence of ongoing significant active bleeding. For now she should have continued monitoring and supportive care. Unless she deteriorates clinically, there is no current role for transfer to a tertiary center with IR for embolization. Subjective Pt examined at bedside this AM. Awake, resting in bed on arrival. No acute distress. Still with intermittent severe left flank pain, reports the last episode was earlier this morning. Tmax 38.0 last night No fever or chills at present. German intact, draining orange urine with no clots noted in tubing Some nausea, managing with IV antiemetics No vomiting. Reports decreased appetite, had small amount of breakfast Per nursing note, german catheter was manually irrigated earlier this morning with some return of clot. Review of Systems Constitutional: as per Subjective / HPI Gastrointestinal: as per Subjective / HPI Genitourinary: as per Subjective / HPI Physical Exam Constitutional: no acute distress Respiratory: normal respiratory effort and able to speak in complete sentences; no labored breathing and no audible wheezes Gastrointestinal (Abdomen): Percussion/Palpation: + abdomen tender (LLQ and left flank tenderness with palpation) and abdomen soft; no guarding and abdomen not rigid Musculoskeletal: Head/Neck/Chest: normocephalic Skin: No visible rashes or lesions to exposed skin areas Neurologic: moves all extremities and awake Psychiatric: Orientation: alert, oriented x 3 and cooperative Genitourinary: + CVA tenderness (Left) German intact and draining orange urine without clot Results & Data ([facility]) Vital Signs (Past 12 Hours) Vital Signs Temp Pulse Resp BP Pulse Ox 07/08/21 23:45 37.5 C 07/08/21 23:00 38 C H 95 H 16 118/71 91 07/08/21 21:48 93 H 117/71 PG Care Time/CCT Total # of Minutes Spent Total Time Spent with Patient: Total time spent is greater than 50% in coordination of care (as documented) at patient's floor/unit and/or counseling patient: Coding Level of Care Code 58679 Subseq Hosp Care Lvl 2 Diagnoses Renal hemorrhage, left N28.89 Gross hematuria R31.0
[2021-07-09] MEDS: CHECK SCOPOLAMINE PATCH PLACEMENT SCH ×2 (08:22→16:14)
[2021-07-09] MEDS: ONDANSETRON INJ 2 MG/ML 2 ML VIAL IV PRN ×2 (08:22→15:34)
[2021-07-09] MEDS: PANTOprazole 40 MG TAB PO SCH (08:23)
[2021-07-09] MEDS: PHENAZOPYRIDINE HCL 100 MG TAB PO SCH ×3 (08:23→20:45)
[2021-07-09] MEDS: buPROPion SR 100 MG TABCR PO SCH ×2 (08:23→20:38)
[2021-07-09] MEDS: VENLAFAXINE HCL XR 37.5 MG CAPXR PO SCH (08:23)
[2021-07-09] MEDS: POLYETHYLENE (MIRALAX) 17 GM PACK PO SCH ×2 (08:23→20:46)
[2021-07-09 08:24] LABS: Basophils # (auto) 0.02 K/uL (0-0.2); Basophils % (auto) 0.1 %; Eosinophils # (auto) 0.18 K/uL (0-0.5); Eosinophils % (auto) 1.1 %; Hematocrit (blood only) 26.2 % (37-47); Hemoglobin 8.7 g/dL (12.0-16.0); Immature Granulocytes # (auto) 0.06 K/uL (0.00-0.02); Immature Granulocytes % (auto) 0.4 %; Lymphocytes # (auto) 1.15 K/uL (1.2-3.4); Lymphocytes % (auto) 6.9 %; Mean Corpuscular Hgb Conc 33.2 g/dL (32-36); Mean Corpuscular Volume 93.2 fL (80-100); Mean Platelet Volume 10.3 fL (7.4-10.4); Monocytes # (auto) 1.19 K/uL (0.11-0.59); Monocytes % (auto) 7.2 %; Neutrophils # (auto) 14.03 K/uL (1.4-6.5); Neutrophils % (auto) 84.3 %; Platelet Count 206 K/uL (130-400); RDW Coefficient of Variation 13.1 % (11.5-14.5); RDW Standard Deviation 45.1 fL (36.4-46.3); Red Blood Count 2.81 M/uL (4.2-5.4); White Blood Count 16.63 K/uL (4.8-10.8)
[2021-07-09] MEDS: HYDROmorphone INJ 0.5 MG/0.5 ML SYR IV PRN ×2 (08:39→15:34)
[2021-07-09 08:43] LABS: Albumin Level 2.6 gm/dl (3.4-5.0); BUN Creatinine Ratio 11.9 (10-20); Calcium 8.8 mg/dl (8.5-10.1); Creatinine Clr Calc Pharmacy 68.2 ml/min; Est GFR (African American) 69.4 ml/min; Est GFR (Non-African American) 59.9 ml/min; Potassium 3.6 mmol/L (3.5-5.1)
[2021-07-09 08:46] LABS: Albumin Globulin Ratio 0.7 (0.9-2); Bilirubin,Total 0.7 mg/dl (0.2-1); Globulin 3.7 gm/dl (2.5-4.0); Total Protein 6.3 gm/dl (6.4-8.2)
--- NOTE | 2021-07-09 08:59 | CT Scan Report ---
ABDOMEN AND PELVIS CT WITHOUT CONTRAST CT DOSE: 555.96 mGy.cm HISTORY: severe abdominal pain TECHNIQUE: Multiaxial CT images of the abdomen and pelvis were performed without contrast. A dose lo wering technique was utilized adhering to the principles of ALARA. COMPARISON STUDY: Abdomen and pelvis CT 07/06/2021. FINDINGS: Bibasilar linear densities consistent with subsegmental atelectasis. No pneumoperitoneum. N o pneumatosis. L5-S1 posterior decompression and fusion with pedicle screws and rods. No fractures wi thin the visualized osseous structures. Trace pericardial effusion and a trace left effusion. The une nhanced liver, pancreas, and adrenal glands unremarkable. Hyperdense material within the gallbladder which may represent sludge. This remains unchanged. Normal right kidney. Bladder is decompressed by F oley catheter. No pelvic free fluid. Suboptimal evaluation for bowel pathology due to the lack of int ravenous and oral contrast. However, there is no definite bowel wall thickening or obstruction. Trini l appendix. Moderate well-formed stool within the colon. No significant change in the left perinephri c hemorrhage with hemorrhage again noted within the left renal collecting system and left ureter. Thi s includes a dominant 3 cm blood clot within the renal pelvis. There is moderate left hydronephrosis which is also similar to the prior study. There is a punctate stone within the lower pole of the left kidney. No definite ureteral stones. There may be trace subcapsular hematoma within the upper pole o f the left kidney, unchanged. IMPRESSION: 1. Interval development of a trace left pleural effusion. Trace pericardial effusion remains unchange d. 2. There is again noted a small amount of left perinephric hemorrhage with hemorrhage located within the left renal collecting system/ureter. This continues to result in moderate left-sided hydrouretero nephrosis. 3. The bladder is decompressed by interval placement of a Kaur catheter. 4. There appears to be a small amount of subcapsular hemorrhage within the upper pole of the left kid jose manuel, unchanged. ACT 112: Negative or not required by law. Electronically signed by: Magno Gupta M.D. 07/09/2021 8:57 AM
[2021-07-09] MEDS: PROMETHAZINE HCL 25 MG TAB PO PRN ×2 (13:05→18:14)
[2021-07-09] MEDS ORDERED: clonazePAM 0.5 MG TAB PO PRN (17:58)
[2021-07-09] MEDS ORDERED: GLYCERIN ADULT 12 SUPP/BOX SUPP PR ONE (18:43)
[2021-07-09] MEDS ORDERED: NALOXONE HCL 0.4 MG/1 ML VIAL/CARP IV PRN (18:43)
[2021-07-09] MEDS ORDERED: HYDROmorphone PCA 30 MG/30 ML IV PRN (18:43)
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
[2021-07-09] MEDS: SODIUM CHLORIDE 0.9% 1000ML 1,000 ML IV SCH (20:37)
[2021-07-09] MEDS: METOPROLOL SUCC 25MG EXT REL TAB PO SCH (20:45)
[2021-07-09] MEDS: DOCUSATE SODIUM/SENNA 50/8.6MG TAB PO SCH (21:12)
[2021-07-09] MEDS: cefTRIAXone SODIUM 2,000 MG in DEXTROSE 5% 50 ML IV SCH (21:15)
[2021-07-10] MEDS: CHECK SCOPOLAMINE PATCH PLACEMENT SCH (00:49)
[2021-07-10] MEDS: ACETAMINOPHEN 325 MG TAB PO SCH ×3 (06:04→21:03)
--- NOTE | 2021-07-10 08:01 | Urology Progress Note ---
Date of Service July 10, 2021 Assessment & Plan (1) Renal hemorrhage, left: (2) Gross hematuria: Plan: 51yo F admitted with left renal hemorrhage of unclear etiology and gross hematuria - Reviewed plan of care with Dr. Delgado, on-call urologist. - POD #3 s/p cystoscopy, clot evacuation. - Patient transferred to [place] last night given ongoing anemia and PSVT - Started on Dilaudid OIL AND GAS RECRUITER yesterday for severe episodes of pain. - Still with left flank pain today, but has improved somewhat and is tolerable with OIL AND GAS RECRUITER. - Afebrile, VSS, on 3L O2 via NC. - Labs reviewed - White count downtrending, Hemoglobin 8.4 (8.7 yesterday), Creatinine normal - Urine culture final no growth; Blood cultures preliminary no growth x 48hours - Continues on IV Ceftriaxone. - Kaur intact, draining orange/blood-tinged urine with a few clots noted in tubing. - Maintain Kaur catheter - OK to gently hand irrigate as needed for clots, retention, suprapubic pain. - Continue management with conservative measures including analgesics, antiemetics, and close monitoring of vital signs. - Monitor H&H, transfuse as felt necessary per primary team. - The underlying cause of her bleed is still unknown and will require further evaluation as an outpatient. - As she is currently hemodynamically stable, there is no current role for transfer to a tertiary center with IR for embolization. - If she has ongoing severe pain or any changes in clinical status, low threshold to repeat labs and CT imaging today. - Will continue to follow closely with primary team. Admission and Anticipated Discharge Date Admission Date: July 06, 2021 Supervising Physician Co-Signing Physician Notes Discussed patient with KELVIN. Agree with plan. Subjective Pt examined at bedside this morning. Awake, resting in bed on arrival. No acute distress. Moved to [place] last night. On 3L O2 via NC. States she is feeling better today than yesterday. Managing pain with Dilaudid OIL AND GAS RECRUITER. Reports no recent episodes of severe left flank/abdominal pain since starting OIL AND GAS RECRUITER. Tolerating full liquid diet. No nausea or vomiting so far today. No fevers or chills. Kaur intact, draining orange/blood-tinged urine with a few clots noted in tubing. Continues on Pyridium. Urine output overnight - 550ml. Nursing manually irrigated x 1. LBM 07/05 per patient +Flatus yesterday Chart review: -Pt started on dilaudid OIL AND GAS RECRUITER yesterday evening d/t ongoing episodes of severe left flank pain -Per nursing note, pt was having severe pain and was lethargic yesterday evening. Her O2 sats were in the low 80's which required 3L oxymask. Patient's heart rate, B/P was also elevated. -Transferred to [facility] last night given ongoing anemia and PSVT. Review of Systems Constitutional: as per Subjective / HPI Gastrointestinal: as per Subjective / HPI Genitourinary: as per Subjective / HPI Physical Exam Constitutional: no acute distress Respiratory: normal respiratory effort and able to speak in complete sentences; no labored breathing and no audible wheezes On 3L O2 via NC Gastrointestinal (Abdomen): Percussion/Palpation: + abdomen tender (LLQ and left flank tenderness with palpation) and abdomen soft; no guarding and abdomen not rigid Musculoskeletal: Head/Neck/Chest: normocephalic Skin: No visible rashes or lesions to exposed skin areas Neurologic: moves all extremities and awake Psychiatric: Orientation: alert, oriented x 3 and cooperative Genitourinary: Kaur intact and draining orange/blood-tinged urine with a few clots noted in tubing Results & Data ([facility]) Vital Signs (Past 12 Hours) Vital Signs Temp Pulse Pulse Pulse Resp BP BP 07/10/21 07:53 36.8 C 85 20 130/74 07/10/21 07:21 84 07/10/21 04:00 36.7 C 91 H 18 107/63 07/10/21 02:00 36.8 C 80 18 123/69 07/10/21 01:00 36.7 C 88 18 134/65 07/10/21 00:00 36.8 C 85 18 127/83 07/09/21 23:00 37.0 C 88 18 125/78 07/09/21 22:48 93 H 07/09/21 21:51 07/09/21 21:23 37 C 99 H 30 H 164/89 H 150/79 H 07/09/21 21:15 07/09/21 20:40 91 H 124/77 07/09/21 20:35 36.8 C 91 H 14 124/77 Pulse Ox 07/10/21 07:53 91 07/10/21 07:21 07/10/21 04:00 94 07/10/21 02:00 96 07/10/21 01:00 93 07/10/21 00:00 100 07/09/21 23:00 95 07/09/21 22:48 07/09/21 21:51 95 07/09/21 21:23 90 07/09/21 21:15 80 L 07/09/21 20:40 90 07/09/21 20:35 80 L PG Care Time/CCT Total # of Minutes Spent Total Time Spent with Patient: Total time spent is greater than 50% in coordination of care (as documented) at patient's floor/unit and/or counseling patient: Coding Level of Care Code 44682 Subseq Hosp Care Lvl 2 Diagnoses Renal hemorrhage, left N28.89 Gross hematuria R31.0
[2021-07-10 08:11] LABS: Hematocrit (blood only) 25.3 % (37-47); Hemoglobin 8.4 g/dL (12.0-16.0); Mean Corpuscular Hemoglobin 31.3 pg (25-34); Mean Corpuscular Hgb Conc 33.2 g/dL (32-36); Mean Corpuscular Volume 94.4 fL (80-100); Mean Platelet Volume 9.9 fL (7.4-10.4); Platelet Count 258 K/uL (130-400); RDW Coefficient of Variation 13.4 % (11.5-14.5); RDW Standard Deviation 46.2 fL (36.4-46.3); Red Blood Count 2.68 M/uL (4.2-5.4); White Blood Count 11.31 K/uL (4.8-10.8)
[2021-07-10] MEDS: buPROPion SR 100 MG TABCR PO SCH ×2 (08:27→21:02)
[2021-07-10] MEDS: VENLAFAXINE HCL XR 37.5 MG CAPXR PO SCH (08:27)
[2021-07-10] MEDS: PANTOprazole 40 MG TAB PO SCH (08:27)
[2021-07-10] MEDS: PHENAZOPYRIDINE HCL 100 MG TAB PO SCH ×3 (08:27→21:03)
[2021-07-10] MEDS: POLYETHYLENE (MIRALAX) 17 GM PACK PO SCH ×2 (08:27→21:08)
[2021-07-10 08:48] LABS: BUN Creatinine Ratio 9.8 (10-20); Est GFR (African American) 75.4 ml/min; Est GFR (Non-African American) 65.1 ml/min; Potassium 3.8 mmol/L (3.5-5.1)
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
[2021-07-10] MEDS: ONDANSETRON INJ 2 MG/ML 2 ML VIAL IV PRN ×2 (17:51→23:35)
[2021-07-10] MEDS: METOPROLOL SUCC 25MG EXT REL TAB PO SCH (21:02)
[2021-07-10] MEDS: CEFDINIR 300 MG CAP PO SCH (21:08)
[2021-07-10] MEDS: OXYBUTYNIN CHLORIDE 5 MG TAB PO SCH (21:08)
[2021-07-10] MEDS: DOCUSATE SODIUM/SENNA 50/8.6MG TAB PO SCH (21:08)
[2021-07-10] MEDS ORDERED: HYDROmorphone INJ 0.5 MG/0.5 ML SYR IV STA (23:12)
[2021-07-11] MEDS: ACETAMINOPHEN 325 MG TAB PO SCH ×3 (06:01→21:19)
[2021-07-11 06:45] LABS: Hematocrit (blood only) 24.6 % (37-47); Mean Corpuscular Hemoglobin 30.9 pg (25-34); Mean Corpuscular Hgb Conc 32.5 g/dL (32-36); Mean Platelet Volume 9.6 fL (7.4-10.4); Platelet Count 278 K/uL (130-400); RDW Coefficient of Variation 13.3 % (11.5-14.5); RDW Standard Deviation 46.3 fL (36.4-46.3); Red Blood Count 2.59 M/uL (4.2-5.4); White Blood Count 9.69 K/uL (4.8-10.8)
[2021-07-11] MEDS: SODIUM CHLORIDE 0.9% 1000ML 1,000 ML IV SCH (06:56)
[2021-07-11 07:06] LABS: BUN Creatinine Ratio 9.9 (10-20); Calcium 9.1 mg/dl (8.5-10.1); Creatinine Clr Calc Pharmacy 70.1 ml/min; Est GFR (African American) 71.9 ml/min; Potassium 3.4 mmol/L (3.5-5.1)
[2021-07-11] MEDS: ONDANSETRON INJ 2 MG/ML 2 ML VIAL IV PRN ×2 (08:13→23:59)
--- NOTE | 2021-07-11 08:40 | Urology Progress Note ---
Date of Service July 11, 2021 Assessment & Plan (1) Renal hemorrhage, left: (2) Gross hematuria: Plan: 51yo F admitted with left renal hemorrhage of unclear etiology and gross hematuria - POD #4 s/p cystoscopy, clot evacuation. - Labs reviewed - White count downtrending, Hemoglobin 8.0 (8.4 yesterday), 1.03 (0.99 yesterday) - Urine culture final no growth; Blood cultures preliminary no growth x 72 hours - Kaur in place, draining maroon, thin bloody urine. - Maintain Kaur catheter - OK to gently hand irrigate as needed for clots, retention, suprapubic pain. - Continue management with conservative measures including analgesics, antiemetics, and close monitoring of vital signs. - Monitor H&H, transfuse as felt necessary per primary team. - The underlying cause of her bleed is still unknown and will require further evaluation as an outpatient. As her symptoms have continued did not improve over time, I think it is best to get another CT scan of the abdomen and pelvis without contrast. She may require left ureteral stent placement in the future and I would like an updated image and this will also show us if the clot burden in her renal pelvis and around her kidney has worsened. I am hesitant to place a left ureteral stent as in my experience, upper tract bleeds can push the stent out of appropriate position. That being said, it may help her symptomatically. - As she is currently hemodynamically stable, there is no current role for transfer to a tertiary center with IR for embolization. That being said, as she continues to be poorly controlled from a symptomatic standpoint, we may need to revisit transfer for further care, specifically from interventional radiology. -Her was updated with her current situation and expected outcome. I discussed that I would call him back later today if any drastic changes were made otherwise I would touch base with them again tomorrow morning. - Will continue to follow closely with primary team. Admission and Anticipated Discharge Date Admission Date: July 06, 2021 Subjective Saw patient in person this morning on rounds. Dr. Dixon was at the bedside as well. She was in significant discomfort in her left upper quadrant and left flank. She reports that her pain has been colicky in nature. It worsened overnight into this morning. She does not feel as if her symptoms regarding pain have improved since her admission. Her catheter has been draining without issue. I had a long discussion with her regarding her current problem, the difficulty in nature of treating this, and the favored conservative approach. She also reported that her would like to speak with someone, so after seeing her I did talk with her on the phone and gave him an update. Review of Systems Review of Systems: 14 point review of systems negative outside of what is listed above in HPI Physical Exam Physical Exam: General: Alert and oriented, mild distress HEENT: Normocephalic, mucous membranes moist Cardiovascular: Regular rate Pulmonary: Nonlabored respirations Abdomen: Nondistended, soft. Mild left upper quadrant tenderness. Kaur catheter draining maroon, thin bloody urine : Mild left CVA tenderness Extremities: Moves all 4 spontaneously Neuro: No gross deficits Skin: Warm, dry, no rashes noted Results & Data ([facility]) Vital Signs (Past 12 Hours) Vital Signs Temp Pulse Pulse Pulse Resp BP BP 07/11/21 07:44 101 H 07/11/21 07:24 36.9 C 88 16 115/76 07/11/21 04:00 36.8 C 89 18 124/78 07/11/21 01:40 86 07/10/21 23:00 37.0 C 84 18 123/72 Pulse Ox 07/11/21 07:44 07/11/21 07:24 92 07/11/21 04:00 90 07/11/21 01:40 07/10/21 23:00 94 PG Care Time/CCT Total # of Minutes Spent Total Time Spent with Patient: Total time spent is greater than 50% in coordination of care (as documented) at patient's floor/unit and/or counseling patient: [place] [address] Subseq Hosp Care Lvl 3 Patient Type Established History Comprehensive Exam Comprehensive Medical Decision Making High Complexity Diagnoses Renal hemorrhage, left N28.89 Gross hematuria R31.0
[2021-07-11] MEDS ORDERED: CYCLOBENZAPRINE HCL 10 MG TAB PO STA (08:44)
[2021-07-11] MEDS ORDERED: LIDOCAINE 5% 1 PATCH TD SCH (09:00)
[2021-07-11] MEDS: VENLAFAXINE HCL XR 37.5 MG CAPXR PO SCH (09:06)
[2021-07-11] MEDS: PHENAZOPYRIDINE HCL 100 MG TAB PO SCH ×3 (09:06→20:36)
[2021-07-11] MEDS: OXYBUTYNIN CHLORIDE 5 MG TAB PO SCH ×2 (09:06→20:36)
[2021-07-11] MEDS: CEFDINIR 300 MG CAP PO SCH ×2 (09:06→20:35)
[2021-07-11] MEDS: buPROPion SR 100 MG TABCR PO SCH ×2 (09:06→20:35)
[2021-07-11] MEDS: PANTOprazole 40 MG TAB PO SCH (09:06)
[2021-07-11] MEDS: POLYETHYLENE (MIRALAX) 17 GM PACK PO SCH ×2 (09:09→20:40)
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
[2021-07-11] MEDS ORDERED: POTASSIUM CHLORIDE CRTAB 20 MEQ TABCR PO STA (09:40)
[2021-07-11] MEDS ORDERED: OPTIRAY 320 125ml IV ONE (09:50)
--- NOTE | 2021-07-11 10:46 | CT Scan Report ---
CT angio abdomen wo/w con CLINICAL HISTORY: Reassess renal hematoma/bleeding COMPARISON STUDY: CT abdomen and pelvis from 07/09/2021 CT DOSE: 1048.55 mGy.cm TECHNIQUE: CTA of the Abdomen was performed with and without IV contrast. This CT exam was performed using one or more of the following dose reduction techniques: Automated exposure control, adjustment of the mA and/or kV according to patient size, or use of iterative reconstruction technique. CONTRAST: Optiray 320, 120 mL nonionic intravenous contrast. The patient received oral contrast. FINDINGS: Vasculature: The abdominal aorta is normal in course and caliber. There is no evidence for aneurysmal dilatation. There is extensive atherosclerotic calcification along its course. However, there is payton tomic origins of the celiac axis, SMA, bilateral renal arteries and ISA without evidence for signific ant stenosis. Please see kidneys below for further evaluation. Lung base: The lung bases are clear. There is again evidence for small right pleural effusion. Abdominal cavity:There is no evidence for abdominal mass, adenopathy or ascites. Liver: There is homogeneous attenuation of the liver parenchyma. There is no evidence for enhancing m ass lesion. Spleen: There is homogeneous attenuation of the splenic parenchyma. There is no enhancing mass lesion . Pancreas: There is homogeneous attenuation of the pancreatic parenchyma. There is no evidence for mas s lesion or peripancreatic fluid collection. Gall Bladder: The gallbladder is well distended with no evidence for intraluminal calculi, wall thic kening or pericholecystic edema. Adrenal glands: The adrenal glands are normal in size and attenuation. There is no evidence for enha ncing mass lesion. Kidneys: Compared to the previous examination, there is again diffuse swelling of the left kidney whe n compared to the right with perinephric stranding present. On noncontrast images, there is again nuris dence for increased attenuation fluid within the left upper pole collecting system representing the p resence of active hemorrhage. Following contrast administration, there is significant contrast enhanc ement at this site confirming of the active hemorrhage. There is no evidence for enhancing mass. The right kidney is within normal limits. There is no evidence for renal calculus or hydronephrosis. Bowel: The bowel loops are normally placed within the abdomen and pelvis without evidence for dilatat ion or obstruction. There is no evidence for mass lesion. There are no inflammatory changes present. There is no evidence for free air. There is a normal appendix in the right lower quadrant. Osseous structures: There is no acute osseous pathology. The patient is again status post laminectom ies and internal fixation. IMPRESSION: 1. CTA confirms continued active hemorrhage involving the upper pole collecting system of the left ki dney. 2. No evidence for retroperitoneal hematoma. 3. Additional nonacute findings are delineated. ACT 112: Negative or not required by law. Electronically signed by: Paulino Haney M.D. 07/11/2021 10:45 AM
[2021-07-11] MEDS ORDERED: SODIUM CHLORIDE 0.9% 250 ML IV PRN (11:27)
[2021-07-11] MEDS: PROMETHAZINE HCL 25 MG TAB PO PRN (13:11)
[2021-07-11] MEDS ORDERED: bisacodyL 10 MG SUPP PR STA (14:23)
[2021-07-11 16:04] LABS: Hematocrit (blood only) 25.4 % (37-47); Hemoglobin 8.5 g/dL (12.0-16.0); Mean Corpuscular Hemoglobin 30.6 pg (25-34); Mean Corpuscular Hgb Conc 33.5 g/dL (32-36); Mean Corpuscular Volume 91.4 fL (80-100); Mean Platelet Volume 9.5 fL (7.4-10.4); Platelet Count 309 K/uL (130-400); RDW Coefficient of Variation 12.9 % (11.5-14.5); RDW Standard Deviation 43.7 fL (36.4-46.3); Red Blood Count 2.78 M/uL (4.2-5.4); White Blood Count 12.12 K/uL (4.8-10.8)
[2021-07-11] MEDS: DOCUSATE SODIUM/SENNA 50/8.6MG TAB PO SCH (20:35)
[2021-07-11] MEDS: METOPROLOL SUCC 25MG EXT REL TAB PO SCH (20:35)
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
== END 2021-07-12 00:57 | disposition short-term general hospital (02) | DRG 699 ==
LOC: EDINP 12:31 → ED 12:31 → 3W 19:35 → SUATTDRO 07-06 13:04 → 2N 07-09 22:52
DX: K21.9 Gastro-esophageal reflux disease without esophagitis; V47.3XXA Unspecified car occupant injured in collision with fixed or stationary object in nontraffic accident, initial encounter; I47.1 Supraventricular tachycardia; N28.89 Other specified disorders of kidney and ureter; R31.0 Gross hematuria; J30.2 Other seasonal allergic rhinitis; E11.9 Type 2 diabetes mellitus without complications; N17.9 Acute kidney failure, unspecified; Z98.1 Arthrodesis status; D62 Acute posthemorrhagic anemia; Y92.410 Unspecified street and highway as the place of occurrence of the external cause; N13.30 Unspecified hydronephrosis; N93.9 Abnormal uterine and vaginal bleeding, unspecified; R65.10 Systemic inflammatory response syndrome (SIRS) of non-infectious origin without acute organ dysfunction; Z88.8 Allergy status to other drugs, medicaments and biological substances; F41.9 Anxiety disorder, unspecified; Z88.5 Allergy status to narcotic agent; Z83.3 Family history of diabetes mellitus